=== PATIENT | female | born 1950 | race Caucasian/White ===

== ENCOUNTER 2016-09-20 11:30 | Outpatient (RCR) | payer OTHER ==
[2016-09-16 10:30] VITALS: BP 124/63; PULSE 90; TEMP 98.7
[~2016-09-20] VITALS: Ht 167.6 cm; Wt 72.0 kg
[2016-09-20 10:41] VITALS: BP 115/71; PULSE 92; TEMP 98.2
[2016-09-20 10:43] LABS: MEAN CELL VOLUME 99 fl (80.0-100.0); MEAN CORPUSCULAR HGB CONC 32 g/dl (33.0-37.0); MEAN PLATELET VOLUME 9.4 fl (7.4-10.4); PLATELET COUNT 490 K/mm3 (130-400); RED BLOOD COUNT 2.61 M/mm3 (4.10-5.30); REDCELL DISTRIBUTION WIDTH-CV 16.1 % (11.5-14.5); WHITE BLOOD COUNT 5.1 K/mm3 (4.8-10.8)
[2016-09-20 10:46] LABS: HEMATOCRIT 25.9 % (37.0-47.0); HEMOGLOBIN 8.4 g/dl (12.5-16.0); MEAN CORPUSCULAR HEMOGLOBIN 32 pg (27.0-31.0)
[2016-09-20 10:55] LABS: ADJUSTED CALCIUM 9.2 mg/dL (8.4-10.2); ALBUMIN 3.6 gm/dL (3.5-5.0); BILIRUBIN,TOTAL 0.5 mg/dL (0.0-1.0); CALCIUM 8.9 mg/dL (8.4-10.2); CREATININE, serum 0.7 mg/dL (0.52-1.25); POTASSIUM 3.9 mmol/L (3.4-5.0)
[2016-09-20 11:01] LABS: MAGNESIUM 1.6 mg/dL (1.6-2.3)
[2016-09-20 11:04] LABS: ADD PATHOLOGY DIFF REVIEW YES; BAND 16 % (0-10); BASOPHIL 2 % (0-2); METAMYELOCYTE 6 % (0-0); MYELOCYTE 1 % (0-0); NEUTROPHILS 62 % (42.0-75.2); TOTAL CELLS COUNTED 100
[2016-09-20 11:05] LABS: OVALOCYTES 1+; PLATELET ESTIMATE INCREASED (NORMAL); SCHISTOCYTES 1+; TEAR DROP CELLS 2+
[~2016-09-20 11:30] MED LIST: ALBUTEROL0.83 MG/ML IH; AMBIEN 10MG10 MG PO; BACTRIM DS 8001 TAB PO; CALAN SR240 MG PO; CARAFATE S1 GM/10 ML PO; CELEXA 20MG20 MG/TAB PO; DEXILANT30 MG PO; HYZAAR 25 MG-101 TAB PO; LIPITOR 10MG10 MG PO; LIPITOR20 MG PO; LORTAB 5/500 501 TAB PO; PREVACID 30MG30 M1 PO; PREVACID 30MG30 MG PO; PROVENTIL0.09 MG/A1 IH; VALIUM 5MG T5 MG/TAB PO; VERAPAMIL240 MG/TAB PO; VIIBRYD20 MG PO; XANAX 0.5MG0.5 MG PO; ZANTAC 150MG T150 MG PO; ZOVIRAX800 MG PO; ZYLOPRIM 300MG300 MG PO
[2016-09-21 09:20] LABS: PATHOLOGY DIFF REVIEW OK
[2016-12-16] MEDS ORDERED: LIPITOR20 MG PO (19:46)
[2016-12-16] MEDS ORDERED: ZOVIRAX800 MG PO (19:46)
[2016-12-16] MEDS ORDERED: DAPSONE 100MG100 MG PO (19:47)
[2016-12-16] MEDS ORDERED: FLEXERIL 1010 MG/TAB PO (19:47)
[2016-12-16] MEDS ORDERED: VITAMIN D 50,1.25 MG PO (19:48)
[2016-12-16] MEDS ORDERED: DIFLUCAN200 MG PO (19:49)
[2016-12-16] MEDS ORDERED: PREVACID 30MG30 M1 PO (19:50)
[2016-12-16] MEDS ORDERED: LEVAQUIN 750MG750 M1 PO (19:51)
[2016-12-16] MEDS ORDERED: IMODIUM 2MG CAPS2 MG PO (19:52)
[2016-12-16] MEDS ORDERED: MELATONIN5 M1 SL (19:53)
[2016-12-16] MEDS ORDERED: ATIVAN 0.50.5 MG/TAB PO (19:53)
[2016-12-16] MEDS ORDERED: ZOFRAN 4MG T4 MG/TAB PO (19:54)
[2016-12-16] MEDS ORDERED: CARAFATE 1GM1 G PO (19:55)
[2016-12-16] MEDS ORDERED: ULTRAM 50MG TAB50 MG PO (19:55)
[2016-12-16] MEDS ORDERED: VIIBRYD20 MG PO (19:56)
[2016-12-16] MEDS ORDERED: AMBIEN 10MG10 MG PO (19:57)
== END 2016-12-15 | disposition home or self-care (01) ==
LOC: EUO
PROVIDERS: Internal Medicine
DX: Z45.2 Encounter for adjustment and management of vascular access device (principal)
CPT/HCPCS: J1644

== ENCOUNTER → 2016-12-15 | Outpatient (CLI) | payer OTHER ==
[~2016-12-15] MED LIST changes: +ATIVAN 0.50.5 MG/TAB PO; +CARAFATE 1GM1 G PO; +DAPSONE 100MG100 MG PO; +DIFLUCAN200 MG PO; +FLEXERIL 1010 MG/TAB PO; +IMODIUM 2MG CAPS2 MG PO; +LEVAQUIN 750MG750 M1 PO; +MELATONIN5 M1 SL; +MIRALAX 255 GM255 GM PO; +NS INT FLUSH 1010 ML IV; +PROMETHAZINE12.5 M5 PO; +ROXANOL 20MG20 MG/ML PO; +ULTRAM 50MG TAB50 MG PO; +VITAMIN D 50,1.25 MG PO; +ZOFRAN 4MG T4 MG/TAB PO
== END ==
LOC: COL.RAD 18:39
DX: Z53.9 Procedure and treatment not carried out, unspecified reason (principal)

== ENCOUNTER 2016-12-16 16:24 | Outpatient (RCR) | payer OTHER ==
[~2016-12-16 16:24] MED LIST changes: -ATIVAN 0.50.5 MG/TAB PO; -CARAFATE 1GM1 G PO; -DAPSONE 100MG100 MG PO; -DIFLUCAN200 MG PO; -FLEXERIL 1010 MG/TAB PO; -IMODIUM 2MG CAPS2 MG PO; -LEVAQUIN 750MG750 M1 PO; -MELATONIN5 M1 SL; -MIRALAX 255 GM255 GM PO; -NS INT FLUSH 1010 ML IV; -PROMETHAZINE12.5 M5 PO; -ROXANOL 20MG20 MG/ML PO; -ULTRAM 50MG TAB50 MG PO; -VITAMIN D 50,1.25 MG PO; -ZOFRAN 4MG T4 MG/TAB PO
[2016-12-16] MEDS ORDERED: ZOVIRAX800 MG PO (19:46)
[2016-12-16] MEDS ORDERED: LIPITOR20 MG PO (19:46)
[2016-12-16] MEDS ORDERED: DAPSONE 100MG100 MG PO (19:47)
[2016-12-16] MEDS ORDERED: FLEXERIL 1010 MG/TAB PO (19:47)
[2016-12-16] MEDS ORDERED: VITAMIN D 50,1.25 MG PO (19:48)
[2016-12-16] MEDS ORDERED: DIFLUCAN200 MG PO (19:49)
[2016-12-16] MEDS ORDERED: PREVACID 30MG30 M1 PO (19:50)
[2016-12-16] MEDS ORDERED: LEVAQUIN 750MG750 M1 PO (19:51)
[2016-12-16] MEDS ORDERED: IMODIUM 2MG CAPS2 MG PO (19:52)
[2016-12-16] MEDS ORDERED: ATIVAN 0.50.5 MG/TAB PO (19:53)
[2016-12-16] MEDS ORDERED: MELATONIN5 M1 SL (19:53)
[2016-12-16] MEDS ORDERED: ZOFRAN 4MG T4 MG/TAB PO (19:54)
[2016-12-16] MEDS ORDERED: ULTRAM 50MG TAB50 MG PO (19:55)
[2016-12-16] MEDS ORDERED: CARAFATE 1GM1 G PO (19:55)
[2016-12-16] MEDS ORDERED: VIIBRYD20 MG PO (19:56)
[2016-12-16] MEDS ORDERED: AMBIEN 10MG10 MG PO (19:57)
[2016-12-23] MEDS ORDERED: PROMETHAZINE12.5 M5 PO (12:51)
[2016-12-23] MEDS ORDERED: MIRALAX 255 GM255 GM PO (12:53)
[2016-12-23] MEDS ORDERED: ATIVAN 0.50.5 MG/TAB PO (12:58)
[2016-12-23] MEDS ORDERED: ROXANOL 20MG20 MG/ML PO (12:58)
[2016-12-23] MEDS ORDERED: NS INT FLUSH 1010 ML IV (13:28)
== END 2017-03-16 ==
LOC: EUO
DX: Z01.89 Encounter for other specified special examinations (principal)

== ENCOUNTER 2016-12-16 16:36 | Inpatient (IN) | payer OTHER ==
[2016-12-16] VITALS (249 sets, daily range): BP systolic 121–138; BP diastolic 60–81; PULSE 69–91; TEMP 97–97.8; O2SAT 86–100
[~2016-12-16] VITALS: Ht 165.1 cm; Wt 80.3 kg
[2016-12-16 17:16] LABS: INR 1.4 (0.8-3.0); PROTHROMBIN TIME 15.4 SECONDS (9.7-12.8)
[2016-12-16 17:16] LABS: MEAN CELL VOLUME 90 fl (80.0-100.0); MEAN CORPUSCULAR HGB CONC 34 g/dl (33.0-37.0); RED BLOOD COUNT 2.79 M/mm3 (4.10-5.30); REDCELL DISTRIBUTION WIDTH-CV 15.1 % (11.5-14.5)
[2016-12-16 17:21] LABS: HEMATOCRIT 25.1 % (37.0-47.0); HEMOGLOBIN 8.6 g/dl (12.5-16.0); MEAN CORPUSCULAR HEMOGLOBIN 31 pg (27.0-31.0); PLATELET COUNT 4 K/mm3 (130-400); WHITE BLOOD COUNT 0.4 K/mm3 (4.8-10.8)
[2016-12-16 17:22] LABS: ADD PATHOLOGY DIFF REVIEW NO
[2016-12-16 17:28] LABS: ADJUSTED CALCIUM 11.5 mg/dL (8.4-10.2); ALBUMIN 2.7 gm/dL (3.5-5.0); BILIRUBIN,TOTAL 1.3 mg/dL (0.0-1.0); CALCIUM 10.5 mg/dL (8.4-10.2); CREATININE, serum 0.79 mg/dL (0.52-1.25); POTASSIUM 3.2 mmol/L (3.4-5.0)
[2016-12-16 17:35] LABS: BAND 10 % (0-10); BASOPHIL 3 % (0-2); EOSINOPHIL 10 % (0-4); METAMYELOCYTE 7 % (0-0); MYELOCYTE 3 % (0-0); NEUTROPHILS 10 % (42.0-75.2); TOTAL CELLS COUNTED 100
[2016-12-16 17:39] LABS: PLATELET ESTIMATE DECREASED (NORMAL)
[2016-12-16 17:40] LABS: ANISOCYTOSIS 1+; HYPOCHROMIA 1+; POIKILOCYTOSIS 1+
[2016-12-16 18:38] LABS: PH 5 (5-8); SQUAMOUS EPITHELIAL 0-2 /hpf; URINE APPEARANCE Cloudy; URINE BACTERIA Rare /hpf; URINE BILIRUBIN Negative (NEGATIVE); URINE BLOOD 1+ (NEGATIVE); URINE COLOR Yellow; URINE GLUCOSE Negative (NEGATIVE); URINE KETONE Negative (NEGATIVE); URINE RBC 0-2 /hpf; URINE UROBILINOGEN Negative (NEGATIVE)
[2016-12-16] MEDS ORDERED: ZOVIRAX800 MG PO (19:46)
[2016-12-16] MEDS ORDERED: LIPITOR20 MG PO (19:46)
[2016-12-16] MEDS ORDERED: FLEXERIL 1010 MG/TAB PO (19:47)
[2016-12-16] MEDS ORDERED: DAPSONE 100MG100 MG PO (19:47)
[2016-12-16] MEDS ORDERED: VITAMIN D 50,1.25 MG PO (19:48)
[2016-12-16] MEDS ORDERED: DIFLUCAN200 MG PO (19:49)
[2016-12-16] MEDS ORDERED: PREVACID 30MG30 M1 PO (19:50)
[2016-12-16] MEDS ORDERED: LEVAQUIN 750MG750 M1 PO (19:51)
[2016-12-16] MEDS ORDERED: IMODIUM 2MG CAPS2 MG PO (19:52)
[2016-12-16] MEDS ORDERED: MELATONIN5 M1 SL (19:53)
[2016-12-16] MEDS ORDERED: ATIVAN 0.50.5 MG/TAB PO (19:53)
[2016-12-16] MEDS ORDERED: ZOFRAN 4MG T4 MG/TAB PO (19:54)
[2016-12-16] MEDS ORDERED: ULTRAM 50MG TAB50 MG PO (19:55)
[2016-12-16] MEDS ORDERED: CARAFATE 1GM1 G PO (19:55)
[2016-12-16] MEDS ORDERED: VIIBRYD20 MG PO (19:56)
[2016-12-16] MEDS ORDERED: AMBIEN 10MG10 MG PO (19:57)
[2016-12-17] VITALS (542 sets, daily range): BP systolic 103–143; BP diastolic 65–100; PULSE 67–97; TEMP 97–98.4; O2SAT 70–100
[2016-12-17 05:21] LABS: MEAN CELL VOLUME 90 fl (80.0-100.0); MEAN CORPUSCULAR HGB CONC 34 g/dl (33.0-37.0); MEAN PLATELET VOLUME 10.8 fl (7.4-10.4); RED BLOOD COUNT 2.06 M/mm3 (4.10-5.30); REDCELL DISTRIBUTION WIDTH-CV 15.1 % (11.5-14.5)
[2016-12-17 05:34] LABS: CALCIUM 10.2 mg/dL (8.4-10.2); CREATININE, serum 0.73 mg/dL (0.52-1.25); POTASSIUM 3.4 mmol/L (3.4-5.0)
[2016-12-17 06:45] LABS: WHITE BLOOD COUNT 0.3 K/mm3 (4.8-10.8)
[2016-12-17 06:46] LABS: ADD PATHOLOGY DIFF REVIEW NO; HEMATOCRIT 18.6 % (37.0-47.0); HEMOGLOBIN 6.4 g/dl (12.5-16.0); MEAN CORPUSCULAR HEMOGLOBIN 31 pg (27.0-31.0); PLATELET COUNT 14 K/mm3 (130-400)
[2016-12-17 08:40] LABS: PLATELET ESTIMATE DECREASED (NORMAL)
[2016-12-17 09:23] LABS: BAND 8 % (0-10); EOSINOPHIL 12 % (0-4); NEUTROPHILS 32 % (42.0-75.2)
[2016-12-17 12:40] LABS: TOTAL CELLS COUNTED 100
[2016-12-18] VITALS (7 sets, daily range): BP systolic 132–167; BP diastolic 59–72; PULSE 92–102; TEMP 97.7–101.5
[2016-12-18 07:07] LABS: MEAN CELL VOLUME 90 fl (80.0-100.0); MEAN CORPUSCULAR HGB CONC 35 g/dl (33.0-37.0); REDCELL DISTRIBUTION WIDTH-CV 15.2 % (11.5-14.5)
[2016-12-18 07:24] LABS: HEMATOCRIT 17.1 % (37.0-47.0); MEAN CORPUSCULAR HEMOGLOBIN 32 pg (27.0-31.0); WHITE BLOOD COUNT 0.3 K/mm3 (4.8-10.8)
[2016-12-18 07:27] LABS: PLATELET COUNT 4 K/mm3 (130-400)
[2016-12-18 08:51] LABS: BAND 8 % (0-10); DOHLE BODIES PRESENT; EOSINOPHIL 10 % (0-4); NEUTROPHILS 24 % (42.0-75.2); PLATELET ESTIMATE DECREASED (NORMAL); TOXIC GRANULATION PRESENT
[2016-12-18 08:53] LABS: ADD PATHOLOGY DIFF REVIEW YES
[2016-12-18 08:54] LABS: ANISOCYTOSIS 1+; OVALOCYTES 1+
[2016-12-18 08:56] LABS: TOTAL CELLS COUNTED 100
[2016-12-19] VITALS (15 sets, daily range): BP systolic 118–147; BP diastolic 53–86; PULSE 84–102; TEMP 98.3–101.2
[2016-12-19 07:46] LABS: MEAN CELL VOLUME 90 fl (80.0-100.0); MEAN CORPUSCULAR HGB CONC 34 g/dl (33.0-37.0); RED BLOOD COUNT 1.78 M/mm3 (4.10-5.30); REDCELL DISTRIBUTION WIDTH-CV 15.4 % (11.5-14.5)
[2016-12-19 08:07] LABS: CALCIUM 10.2 mg/dL (8.4-10.2); CREATININE, serum 0.65 mg/dL (0.52-1.25); POTASSIUM 3.8 mmol/L (3.4-5.0)
[2016-12-19 08:10] LABS: WHITE BLOOD COUNT 0.2 K/mm3 (4.8-10.8)
[2016-12-19 08:11] LABS: HEMATOCRIT 16.1 % (37.0-47.0); HEMOGLOBIN 5.5 g/dl (12.5-16.0); MEAN CORPUSCULAR HEMOGLOBIN 31 pg (27.0-31.0); PLATELET COUNT 3 K/mm3 (130-400)
[2016-12-19 09:05] LABS: PATHOLOGY DIFF REVIEW OK +
[2016-12-20] VITALS (11 sets, daily range): BP systolic 102–179; BP diastolic 50–75; PULSE 80–112; TEMP 97.4–99.4
[2016-12-20 08:52] LABS: MEAN CELL VOLUME 90 fl (80.0-100.0); MEAN CORPUSCULAR HGB CONC 34 g/dl (33.0-37.0); RED BLOOD COUNT 1.76 M/mm3 (4.10-5.30)
[2016-12-20 09:02] LABS: HEMATOCRIT 15.8 % (37.0-47.0); HEMOGLOBIN 5.4 g/dl (12.5-16.0); MEAN CORPUSCULAR HEMOGLOBIN 31 pg (27.0-31.0); WHITE BLOOD COUNT 0.2 K/mm3 (4.8-10.8)
[2016-12-20 09:03] LABS: ADD PATHOLOGY DIFF REVIEW NO; PLATELET COUNT 12 K/mm3 (130-400)
[2016-12-20 10:48] LABS: BAND 23 % (0-10); EOSINOPHIL 8 % (0-4); NEUTROPHILS 19 % (42.0-75.2); TOTAL CELLS COUNTED 100
[2016-12-20 10:49] LABS: ANISOCYTOSIS 2+; HYPOCHROMIA 2+; MICROCYTOSIS 2+
[2016-12-20 10:50] LABS: SCHISTOCYTES 1+
[2016-12-21] VITALS (8 sets, daily range): BP systolic 123–177; BP diastolic 60–78; PULSE 81–117; TEMP 97.4–102.8
[2016-12-21 07:39] LABS: MEAN CELL VOLUME 86 fl (80.0-100.0); MEAN CORPUSCULAR HGB CONC 34 g/dl (33.0-37.0); RED BLOOD COUNT 2.62 M/mm3 (4.10-5.30); REDCELL DISTRIBUTION WIDTH-CV 16.6 % (11.5-14.5)
[2016-12-21 08:34] LABS: HEMATOCRIT 22.5 % (37.0-47.0); HEMOGLOBIN 7.6 g/dl (12.5-16.0); MEAN CORPUSCULAR HEMOGLOBIN 29 pg (27.0-31.0); PLATELET COUNT 8 K/mm3 (130-400); WHITE BLOOD COUNT 0.2 K/mm3 (4.8-10.8)
[2016-12-21 08:35] LABS: ADD PATHOLOGY DIFF REVIEW NO
[2016-12-21 09:33] LABS: BAND 20 % (0-10); EOSINOPHIL 10 % (0-4); NEUTROPHILS 20 % (42.0-75.2)
[2016-12-21 09:34] LABS: ANISOCYTOSIS 1+; HYPOCHROMIA 1+; PLATELET ESTIMATE DECREASED (NORMAL)
[2016-12-21 09:35] LABS: ACANTHOCYTES 1+; HELMET CELLS 1+; TEAR DROP CELLS 1+
[2016-12-21 09:37] LABS: POIKILOCYTOSIS 3+; TOTAL CELLS COUNTED 10
[2016-12-22 00:28] VITALS: BP 154/90; PULSE 109; TEMP 98.2
[2016-12-22 04:18] VITALS: BP 172/71; PULSE 125; TEMP 97.6
[2016-12-22 08:02] VITALS: BP 116/101; PULSE 95; TEMP 98.1
[2016-12-22 08:34] LABS: MEAN CELL VOLUME 84 fl (80.0-100.0); MEAN CORPUSCULAR HGB CONC 35 g/dl (33.0-37.0); RED BLOOD COUNT 2.31 M/mm3 (4.10-5.30); REDCELL DISTRIBUTION WIDTH-CV 17.2 % (11.5-14.5)
[2016-12-22 08:37] LABS: HEMATOCRIT 19.5 % (37.0-47.0); HEMOGLOBIN 6.9 g/dl (12.5-16.0); MEAN CORPUSCULAR HEMOGLOBIN 30 pg (27.0-31.0); PLATELET COUNT 2 K/mm3 (130-400); WHITE BLOOD COUNT 0.2 K/mm3 (4.8-10.8)
[2016-12-22 08:38] LABS: ADD PATHOLOGY DIFF REVIEW NO
[2016-12-22 12:17] VITALS: BP 137/76; PULSE 94; TEMP 98.6
[2016-12-22 15:19] LABS: BAND 8 % (0-10); EOSINOPHIL 12 % (0-4); NEUTROPHILS 24 % (42.0-75.2); TOTAL CELLS COUNTED 100
[2016-12-22 15:20] LABS: ANISOCYTOSIS 2+; HYPOCHROMIA 1+; MICROCYTOSIS 1+; PLATELET ESTIMATE DECREASED (NORMAL); SCHISTOCYTES 1+
[2016-12-22 19:12] VITALS: BP 165/73; PULSE 115; TEMP 99.7
[2016-12-22 23:33] VITALS: BP 151/75; PULSE 100; TEMP 98.7
[2016-12-23 07:28] LABS: MEAN CELL VOLUME 84 fl (80.0-100.0); MEAN CORPUSCULAR HGB CONC 34 g/dl (33.0-37.0); RED BLOOD COUNT 2.02 M/mm3 (4.10-5.30); REDCELL DISTRIBUTION WIDTH-CV 17.1 % (11.5-14.5)
[2016-12-23 07:47] LABS: HEMOGLOBIN 5.8 g/dl (12.5-16.0); MEAN CORPUSCULAR HEMOGLOBIN 29 pg (27.0-31.0); WHITE BLOOD COUNT 0.3 K/mm3 (4.8-10.8)
[2016-12-23 07:48] LABS: ADD PATHOLOGY DIFF REVIEW NO; PLATELET COUNT 1 K/mm3 (130-400)
[2016-12-23] MEDS ORDERED: PROMETHAZINE12.5 M5 PO (12:51)
[2016-12-23] MEDS ORDERED: MIRALAX 255 GM255 GM PO (12:53)
[2016-12-23] MEDS ORDERED: ATIVAN 0.50.5 MG/TAB PO (12:58)
[2016-12-23] MEDS ORDERED: ROXANOL 20MG20 MG/ML PO (12:58)
[2016-12-23 13:23] VITALS: BP 151/75; PULSE 100; TEMP 98.7
[2016-12-23] MEDS ORDERED: NS INT FLUSH 1010 ML IV (13:28)
[2016-12-23 15:44] LABS: BAND 21 % (0-10); NEUTROPHILS 7 % (42.0-75.2); TOTAL CELLS COUNTED 100
[2016-12-23 15:47] LABS: ANISOCYTOSIS 3+; HYPOCHROMIA 2+; MICROCYTOSIS 1+
[2016-12-23 15:48] LABS: PLATELET ESTIMATE NORMAL (NORMAL)
== END 2016-12-23 15:28 | disposition hospice, inpatient (51) | DRG 809 ==
LOC: COL.ER 16:36 → ICU 17:50 → MEDICAL 17:50
PROVIDERS: Emergency Medicine; Family Medicine; Internal Medicine; Internal Medicine Cardiovascular Disease
PROC: 02HV33Z Insertion of Infusion Device into Superior Vena Cava, Percutaneous Approach (ICD-10-PCS; principal; 2016-12-16)
DX: D70.4 Cyclic neutropenia (principal); C90.10 Plasma cell leukemia not having achieved remission; E87.1 Hypo-osmolality and hyponatremia; R50.81 Fever presenting with conditions classified elsewhere; Z51.5 Encounter for palliative care; I10 Essential (primary) hypertension; Z87.891 Personal history of nicotine dependence; D61.810 Antineoplastic chemotherapy induced pancytopenia; E87.6 Hypokalemia
CPT/HCPCS: 99223-AI; 99232-AI; 99233-AI; 99239; J0692; J1200; J1447; J1956; J2270; J2550; J3370; J3480; J7030; J7050; P9037; P9040